=== PATIENT | male | born 1975 | race African-American/Black ===

== ENCOUNTER 2018-10-01 08:46 | Inpatient (IN) ==
[2018-10-01] MEDS ORDERED: FAMOTIDINE 20 MG/2 ML VIAL IV STA (09:07)
[2018-10-01] MEDS ORDERED: ONDANSETRON 4 MG/2 ML VIAL IV STA (09:07)
[2018-10-01] MEDS ORDERED: SODIUM CHLORIDE 0.9% 1,000 ML IV STA (09:07)
[2018-10-01] MEDS ORDERED: METOCLOPRAMIDE 10 MG/2 ML VIAL IV STA (09:07)
[2018-10-01 10:11] LABS: Alanine Aminotransferase 14 U/L (16-61); Albumin 1.5 G/DL (3.4-5.0); Alkaline Phosphatase 112 U/L (45-117); Aspartate Amino Transferase 30 U/L (0-37); Bilirubin,Total < 0.39 MG/DL (0.2-1.0); Blood Urea Nitrogen 33 MG/DL (7-18); Calcium 7.2 MG/DL (8.5-10.1); Glucose 110 MG/DL (74-106); Osmolality,Calculated 280.8 MOS/KG (273-304); Total Protein 8.2 G/DL (6.4-8.3); Troponin I < 0.015 NG/ML (0.00-0.045)
[2018-10-01 10:28] LABS: Basophils % 0.5 % (0.0-0.8); Eosinophils # 0.2 10*3/uL (0.0-0.87); Eosinophils % 4.2 % (0.00-10.9); Immature Granulocytes % 0.5 %; Immature Granulocytes Absolute 0.02 #; Lymphocytes # 1.1 10*3/uL (1.4-4.0); Lymphocytes % 28.1 % (21.2-54.2); Mean Corpuscular HGB Conc 30.1 GM/DL (32-36); Mean Corpuscular Volume 83.2 FL (87-102); Mean Platelet Volume 11.9 FL (9.6-12.0); Monocytes % 7.3 % (1.7-12.7); Neutrophils % 59.4 % (38.7-73.9); Platelet Count 122 T/CUMM (130-400); Red Blood Count 1.84 MC/CUMM (3.8-5.5); Red Cell Distribution Width 14.9 % (9.3-17.3); White Blood Count 3.8 T/CUMM (4-12)
[2018-10-01 10:32] LABS: Hemoglobin 4.6 GM/DL (14.0-18.0)
[2018-10-01 10:34] LABS: Hematocrit 15.3 VOL% (42.0-52.0)
[2018-10-01 10:35] LABS: INR 1.2; PT Patient Result 12.7 SECS; Partial Thromboplastin Time 30.1 SECS (0-40)
[2018-10-01] MEDS ORDERED: cefTRIAXone 1,000 MG in SODIUM CHLORIDE 0.9% 100 ML IV STA (10:35)
[2018-10-01] MEDS ORDERED: AZITHROMYCIN INJ 500 MG in SODIUM CHLORIDE 0.9% 250 ML IV STA (10:36)
[2018-10-01] MEDS ORDERED: SODIUM CHLORIDE 0.9% 1,000 ML IV PRN (11:34)
[2018-10-01] MEDS ORDERED: ONDANSETRON 4 MG/2 ML VIAL IV PRN (11:51)
[2018-10-01] MEDS ORDERED: NICOTINE 21 MG/24 HR PATCH TRANSDERM PRN (11:51)
[2018-10-01] MEDS ORDERED: FUROSEMIDE 40 MG/4 ML VIAL IV PRN (12:04)
[2018-10-01 14:14] LABS: Hemoglobin 4.6 GM/DL (14.0-18.0)
[2018-10-01 14:15] LABS: Hematocrit 15.5 VOL% (42.0-52.0)
[2018-10-01] MEDS: CARVEDILOL 6.25 MG TABLET PO SCH (17:40)
[2018-10-01] MEDS: NICOTINE 21 MG/24 HR PATCH TRANSDERM SCH (17:40)
[2018-10-01] MEDS: PANTOPRAZOLE 40 MG VIAL IV SCH (20:15)
[2018-10-01 21:24] LABS: Hematocrit 19.3 VOL% (42.0-52.0)
[2018-10-01 21:28] LABS: Hemoglobin 5.9 GM/DL (14.0-18.0)
[2018-10-01] MEDS: ALBUTEROL/IPRATROPIUM 3 ML NEB RESP TX SCH (22:25)
[2018-10-02] MEDS ORDERED: methylPREDNISolone SOD SUC 125 MG/2 ML VIAL IV ONE (01:09)
[2018-10-02] MEDS ORDERED: ALBUTEROL 2.5 MG/3 ML NEB RESP TX PRN (01:10)
[2018-10-02] MEDS: ALBUTEROL/IPRATROPIUM 3 ML NEB RESP TX SCH ×4 (01:20→20:08)
[2018-10-02 06:10] LABS: Basophils % 0.5 % (0.0-0.8); Immature Granulocytes % 0.5 %; Immature Granulocytes Absolute 0.02 #; Lymphocytes # 0.6 10*3/uL (1.4-4.0); Lymphocytes % 16.8 % (21.2-54.2); Monocytes % 1.3 % (1.7-12.7); Neutrophils % 79.9 % (38.7-73.9)
[2018-10-02 06:32] LABS: Albumin 1.7 G/DL (3.4-5.0); Bilirubin,Total 0.4 MG/DL (0.2-1.0); Calcium 7.7 MG/DL (8.5-10.1); Osmolality,Calculated 281.8 MOS/KG (273-304); Total Protein 8.9 G/DL (6.4-8.3)
[2018-10-02 06:34] LABS: % Iron Saturation 31.4 % (18-50); Ferritin 16.5 ng/ml (26-388)
[2018-10-02 06:43] LABS: Folate 9.7 NG/ML (5.4-24.0); Vitamin B12 1077 PG/ML (211-911)
[2018-10-02 07:11] LABS: Hematocrit 22.3 VOL% (42.0-52.0); Hemoglobin 6.7 GM/DL (14.0-18.0); Mean Corpuscular Volume 84.5 FL (87-102); Mean Platelet Volume 12.3 FL (9.6-12.0); Platelet Count 136 T/CUMM (130-400); Red Blood Count 2.64 MC/CUMM (3.8-5.5); Red Cell Distribution Width 14.9 % (9.3-17.3); White Blood Count 3.7 T/CUMM (4-12)
[2018-10-02 07:14] LABS: Sedimentation Rate-Westergren 131 MM/HR (0-15)
[2018-10-02] MEDS: CARVEDILOL 6.25 MG TABLET PO SCH ×2 (08:15→16:18)
[2018-10-02] MEDS: PANTOPRAZOLE 40 MG VIAL IV SCH ×2 (08:15→20:12)
[2018-10-02] MEDS: NICOTINE 21 MG/24 HR PATCH TRANSDERM SCH (08:15)
[2018-10-02] MEDS ORDERED: cefTRIAXone 1,000 MG in SODIUM CHLORIDE 0.9% 100 ML IV SCH (10:00)
[2018-10-02] MEDS ORDERED: AZITHROMYCIN INJ 500 MG in SODIUM CHLORIDE 0.9% 250 ML IV SCH (10:00)
[2018-10-02] MEDS: cefTRIAXone 2,000 MG in SYRINGE 1 EACH IV SCH (10:30)
[2018-10-02] MEDS: ACETAMINOPHEN 325 MG TABLET PO PRN (10:36)
[2018-10-02] MEDS ORDERED: GLUCAGON 1 MG VIAL IM PRN (11:07)
[2018-10-02] MEDS ORDERED: DEXTROSE 50% 25 GM/50 ML VIAL IV PRN (11:07)
[2018-10-02 11:35] LABS: Hemoglobin A1 (Alkaline) 97.2 % (96.5-98.5); Hemoglobin A2 (Alkaline) 2.8 % (1.5-3.5)
[2018-10-03] MEDS: ALBUTEROL/IPRATROPIUM 3 ML NEB RESP TX SCH ×4 (00:39→20:18)
[2018-10-03 05:02] LABS: Basophils % 0.6 % (0.0-0.8); Eosinophils % 0.5 % (0.00-10.9); Hematocrit 20.8 VOL% (42.0-52.0); Immature Granulocytes % 0.5 %; Immature Granulocytes Absolute 0.03 #; Lymphocytes # 1.6 10*3/uL (1.4-4.0); Lymphocytes % 25.3 % (21.2-54.2); Mean Corpuscular HGB Conc 30.8 GM/DL (32-36); Mean Corpuscular Volume 84.6 FL (87-102); Mean Platelet Volume 12.2 FL (9.6-12.0); Neutrophils % 65.1 % (38.7-73.9); Platelet Count 135 T/CUMM (130-400); Red Blood Count 2.46 MC/CUMM (3.8-5.5); White Blood Count 6.5 T/CUMM (4-12)
[2018-10-03 05:11] LABS: Hemoglobin 6.4 GM/DL (14.0-18.0)
[2018-10-03 05:27] LABS: Albumin 1.6 G/DL (3.4-5.0); Bilirubin,Total 0.4 MG/DL (0.2-1.0); Calcium 7.7 MG/DL (8.5-10.1); Osmolality,Calculated 286.5 MOS/KG (273-304); Total Protein 8.3 G/DL (6.4-8.3)
[2018-10-03] MEDS ORDERED: SODIUM CHLORIDE 0.9% 1,000 ML IV PRN (07:08)
[2018-10-03] MEDS ORDERED: LACTATED RINGERS 1,000 ML IV SCH (08:00)
[2018-10-03] MEDS: NICOTINE 21 MG/24 HR PATCH TRANSDERM SCH (09:06)
[2018-10-03] MEDS: CARVEDILOL 6.25 MG TABLET PO SCH ×2 (10:09→16:48)
[2018-10-03] MEDS: PANTOPRAZOLE 40 MG VIAL IV SCH ×2 (10:17→20:48)
[2018-10-03] MEDS: cefTRIAXone 2,000 MG in SYRINGE 1 EACH IV SCH (10:17)
[2018-10-03] MEDS ORDERED: AZITHROMYCIN 250 MG TABLET PO SCH (12:01)
[2018-10-03] MEDS: AZITHROMYCIN 250 MG TABLET PO SCH (14:11)
[2018-10-03] MEDS ORDERED: BISACODYL 5 MG TABLET PO ONE (15:00)
[2018-10-03 17:12] LABS: Hematocrit 22.3 VOL% (42.0-52.0); Hemoglobin 6.9 GM/DL (14.0-18.0)
[2018-10-03] MEDS ORDERED: POLYETHYLENE GLYCOL POWDER 255 GM BOTTLE PO ONE (18:00)
[2018-10-03] MEDS: FERROUS SULFATE 325 MG TABLET PO SCH (20:48)
[2018-10-04] MEDS: ALBUTEROL/IPRATROPIUM 3 ML NEB RESP TX SCH ×4 (01:07→19:06)
[2018-10-04 05:01] LABS: Basophils # 0.1 10*3/uL (0.0-0.2); Basophils % 0.9 % (0.0-0.8); Eosinophils # 0.1 10*3/uL (0.0-0.87); Eosinophils % 2.5 % (0.00-10.9); Hematocrit 24.2 VOL% (42.0-52.0); Hemoglobin 7.3 GM/DL (14.0-18.0); Immature Granulocytes % 0.4 %; Immature Granulocytes Absolute 0.02 #; Lymphocytes # 1.8 10*3/uL (1.4-4.0); Lymphocytes % 32.6 % (21.2-54.2); Mean Corpuscular HGB Conc 30.2 GM/DL (32-36); Mean Corpuscular Volume 84.6 FL (87-102); Mean Platelet Volume 12.3 FL (9.6-12.0); Monocytes % 7.9 % (1.7-12.7); Neutrophils % 55.7 % (38.7-73.9); Platelet Count 124 T/CUMM (130-400); Red Blood Count 2.86 MC/CUMM (3.8-5.5); Red Cell Distribution Width 15.3 % (9.3-17.3); White Blood Count 5.6 T/CUMM (4-12)
[2018-10-04 05:46] LABS: Albumin 1.6 G/DL (3.4-5.0); Bilirubin,Total 0.4 MG/DL (0.2-1.0); Calcium 7.4 MG/DL (8.5-10.1); Osmolality,Calculated 286.5 MOS/KG (273-304); Total Protein 8.1 G/DL (6.4-8.3)
[2018-10-04] MEDS ORDERED: MAGNESIUM CITRATE 300 ML BOTTLE PO ONE (06:00)
[2018-10-04] MEDS: AZITHROMYCIN 250 MG TABLET PO SCH (09:27)
[2018-10-04] MEDS: FERROUS SULFATE 325 MG TABLET PO SCH ×2 (09:28→21:18)
[2018-10-04] MEDS: CARVEDILOL 6.25 MG TABLET PO SCH ×2 (09:28→16:10)
[2018-10-04] MEDS: PANTOPRAZOLE 40 MG VIAL IV SCH ×2 (09:28→21:18)
[2018-10-04] MEDS: cefTRIAXone 2,000 MG in SYRINGE 1 EACH IV SCH (09:28)
[2018-10-04] MEDS: NICOTINE 21 MG/24 HR PATCH TRANSDERM SCH (09:29)
[2018-10-04] MEDS ORDERED: BISACODYL 5 MG TABLET PO ONE (11:06)
[2018-10-04] MEDS ORDERED: POLYETHYLENE GLYCOL POWDER 255 GM BOTTLE PO ONE (11:06)
[2018-10-04] MEDS ORDERED: TEMAZEPAM 15 MG CAPSULE PO PRN (16:44)
[2018-10-05] MEDS: ALBUTEROL/IPRATROPIUM 3 ML NEB RESP TX SCH ×2 (00:06→07:48)
[2018-10-05] MEDS: ACETAMINOPHEN 325 MG TABLET PO PRN (09:40)
[2018-10-05] MEDS: CARVEDILOL 6.25 MG TABLET PO SCH (09:40)
[2018-10-05] MEDS: AZITHROMYCIN 250 MG TABLET PO SCH (09:41)
[2018-10-05] MEDS: FERROUS SULFATE 325 MG TABLET PO SCH (09:41)
[2018-10-05] MEDS: cefTRIAXone 2,000 MG in SYRINGE 1 EACH IV SCH (09:41)
[2018-10-05] MEDS: NICOTINE 21 MG/24 HR PATCH TRANSDERM SCH (09:41)
[2018-10-05] MEDS: PANTOPRAZOLE 40 MG VIAL IV SCH (09:41)
[2018-10-05 10:50] LABS: Basophils % 0.4 % (0.0-0.8); Eosinophils # 0.3 10*3/uL (0.0-0.87); Eosinophils % 5.3 % (0.00-10.9); Hematocrit 23.4 VOL% (42.0-52.0); Hemoglobin 7.1 GM/DL (14.0-18.0); Immature Granulocytes % 0.4 %; Immature Granulocytes Absolute 0.02 #; Lymphocytes # 1.3 10*3/uL (1.4-4.0); Mean Corpuscular HGB Conc 30.3 GM/DL (32-36); Mean Corpuscular Volume 84.8 FL (87-102); Mean Platelet Volume 11.4 FL (9.6-12.0); Monocytes % 8.5 % (1.7-12.7); Neutrophils % 58.4 % (38.7-73.9); Platelet Count 105 T/CUMM (130-400); Red Blood Count 2.76 MC/CUMM (3.8-5.5); Red Cell Distribution Width 15.6 % (9.3-17.3); White Blood Count 4.7 T/CUMM (4-12)
[2018-10-05 11:01] VITALS: BP 146/92
[2018-10-05 11:22] LABS: Alanine Aminotransferase 16 U/L (16-61); Albumin 1.6 G/DL (3.4-5.0); Alkaline Phosphatase 99 U/L (45-117); Aspartate Amino Transferase 31 U/L (0-37); Bilirubin,Total < 0.39 MG/DL (0.2-1.0); Blood Urea Nitrogen 43 MG/DL (7-18); Calcium 6.3 MG/DL (8.5-10.1); Glucose 101 MG/DL (74-106); Osmolality,Calculated 291.3 MOS/KG (273-304); Total Protein 7.1 G/DL (6.4-8.3)
[2018-10-05] MEDS ORDERED: LACTATED RINGERS 1,000 ML IV SCH (11:30)
== END 2018-10-05 16:50 | disposition home or self-care (01) | DRG 377 ==
LOC: N.ED 08:46 → SUATTDRO 11:34 → N.EDINP 11:34 → N.5E 13:33
PROVIDERS: ADMIT Hospitalist; ATTEND Internal Medicine